=== PATIENT | female | born 1945 | race Caucasian/White ===

== ENCOUNTER 2018-07-23 18:00 | Emergency (ER) | payer MEDICARE, OTHER ==
[~2018-07-23] VITALS: Ht 152.4 cm; Wt 67.1 kg
[2018-07-23 18:06] VITALS: BP_SYST 160
[2018-07-23] MEDS: HYDROcodone/ACETAMIN 5-325 MG TAB (NORCO/ VICODIN) PO ONE ×2 (18:26→18:28)
[2018-07-23] MEDS ORDERED: IBUPROFEN 800 MG TABLET PO ONE (18:45)
[2018-07-23 19:40] VITALS: BP_SYST 148
== END 2018-07-23 19:40 | disposition home or self-care (01) ==
LOC: SED 18:00
DX: S20.219A Contusion of unspecified front wall of thorax, initial encounter (principal); S60.211A Contusion of right wrist, initial encounter; R03.0 Elevated blood-pressure reading, without diagnosis of hypertension; V43.52XA Car driver injured in collision with other type car in traffic accident, initial encounter; Y93.89 Activity, other specified; Y92.89 Other specified places as the place of occurrence of the external cause; Y99.8 Other external cause status; Z90.49 Acquired absence of other specified parts of digestive tract; Z90.710 Acquired absence of both cervix and uterus
CPT/HCPCS: 71045; 99283